=== PATIENT | female | born 1960 | race Caucasian/White ===

== ENCOUNTER → 2018-11-23 | Outpatient (CLI) | payer OTHER, SELFPAY ==
--- NOTE | 2018-11-23 09:56 | BI_ITS ---
MAMMOGRAPHY - BILATERAL SCREENING REASON FOR EXAM: Female, 58 years old. Routine annual screening examination. PERTINENT HISTORY: Non-contributory. TECHNIQUE: Digital bilateral breast radha (3D mammographic acquisition) in the CC and MLO projections. 2-D mediolateral oblique (MLO) and craniocaudad (CC) views of both breasts were obtained. CAD: Full Field Digital Mammography with Computer Added Detection was performed. COMPARISON: Comparison is made with prior study dated July 22, 2016 and April 10, 2015. FINDINGS: Breast Composition: The breasts are heterogeneously dense, which may obscure small masses. There are no dominant masses or suspicious calcifications. Stable bilateral axillary lymph nodes. No other significant abnormalities are identified. There has been no significant change since the prior study. BI/SCREENING MAMM (CAD), BILAT IMPRESSION: Stable bilateral screening mammogram. Yearly follow-up mammogram recommended. (A) ASSESSMENT CATEGORY: BIRADS Category 2: Benign. A letter regarding these results will be sent to the patient by the facility within 30 days. Approximately 10% of breast cancers are not detected by mammography. A normal mammogram should not delay biopsy of a clinically suspicious abnormality. [id number] Electronically Signed: Victorino Sullivan, at 13:50 EDT , Service support ,
== END | disposition home or self-care (01) ==
LOC: OPBI 09:53
PROVIDERS: Family Provider Family Medicine; PCP Family Medicine; Referring Provider Obstetrics & Gynecology; Visit Provider Obstetrics & Gynecology
DX: Z12.31 Encounter for screening mammogram for malignant neoplasm of breast (principal)
CPT/HCPCS: 77063; 77067

== ENCOUNTER 2021-08-27 10:29 | Outpatient (CLI) | payer OTHER, SELFPAY ==
--- NOTE | 2021-08-27 10:31 | BI_ITS ---
MAMMOGRAPHY - BILATERAL SCREENING REASON FOR EXAM: Female, 61 years old. Routine annual screening examination. PERTINENT HISTORY: Non-contributory. TECHNIQUE: Digital bilateral breast srinivasa (3D mammographic acquisition) in the CC and MLO projections. 2-D mediolateral oblique (MLO) and craniocaudad (CC) views of both breasts were obtained. CAD: Full Field Digital Mammography with Computer Added Detection was performed. COMPARISON: Comparison is made with prior study of 11/23/2018 and 07/22/2016. FINDINGS: Breast Composition: The breasts are heterogeneously dense, which may obscure small masses. There are no dominant masses or suspicious calcifications. Stable benign-appearing bilateral axillary lymph node. No other significant abnormalities are identified. There has been no significant change since the prior study. BI/SCRN MAMM (CAD)W/SRINIVASA BILAT IMPRESSION: Stable bilateral screening mammogram. Yearly follow-up mammogram recommended. (A) ASSESSMENT CATEGORY: BIRADS Category 2: Benign. A letter regarding these results will be sent to the patient by the facility within 30 days. Approximately 10% of breast cancers are not detected by mammography. A normal mammogram should not delay biopsy of a clinically suspicious abnormality. [id number] Electronically Signed: Victorino Sullivan MD at 12:08 EST , Service support ,
== END 2021-08-27 23:59 | disposition short-term general hospital (02) ==
LOC: OPBI 10:29
PROVIDERS: PCP Family Medicine
DX: Z12.31 Encounter for screening mammogram for malignant neoplasm of breast (principal)
CPT/HCPCS: 77063; 77067

== ENCOUNTER → 2022-10-28 | Outpatient (CLI) | payer OTHER, SELFPAY ==
--- NOTE | 2022-10-28 11:55 | BI_ITS ---
MAMMOGRAPHY - BILATERAL SCREENING 3-D TOMOSYNTHESIS REASON FOR EXAM: Female, 62 years old. Routine screening PERTINENT HISTORY: No significant family history. TECHNIQUE: 2-D mammograms and 3-D Tomosynthesis of the breast (s) were performed. CAD was performed. COMPARISON: 11/23/2018 FINDINGS: The breast composition is heterogeneously dense that can obscure small breast masses. Scattered benign calcifications are seen. No dense spiculated masses or suspicious microcalcifications are identified. No architectural distortion is identified. There is no skin thickening or retraction. There has been no significant change since the prior study. BI/SCRN MAMM (CAD)W/SRINIVASA BILAT IMPRESSION: No mammographic signs of malignancy. Routine yearly mammograms recommended. ASSESSMENT CATEGORY: BIRADS Category 2: Benign. A letter regarding these results will be sent to the patient by the facility within 30 days. FOLLOW UP RECOMMENDATION: Yearly follow up mammogram recommended. (A) Approximately 10% of breast cancers are not detected by mammography. A normal mammogram should not delay biopsy of a clinically suspicious abnormality. Electronically Signed: Yeison Jimenez MD at 13:01 EDT ,
== END | disposition home or self-care (01) ==
PROVIDERS: PCP Family Medicine
DX: Z12.31 Encounter for screening mammogram for malignant neoplasm of breast (principal)
CPT/HCPCS: 77063; 77067

== ENCOUNTER → 2023-09-05 | Outpatient (CLI) | payer OTHER, SELFPAY ==
--- OUTSIDE RECORDS SUMMARY | 2023-09-05 15:26 | XMS RPT_ITS | CCD ---
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 not include seasonal allergies or asthma. Note for Cold Symptoms : reviewed by [facility] 08-06-2011 Unclassified (1 source) Cold Symptoms - Symptoms include sneezing, nasal congestion, runny nose, ear pain, ear fullness, sore throat, dry cough, fever, headache and facial pain, but do not include chills. The onset was gradual 1 week(s) ago. The symptoms occur frequently. The patient describes this as moderate in severity and worsening. The patient is not currently being treated for this problem. The patient has been exposed to an individual with similar symptoms. Medical History dose not include seasonal allergies, asthma or tonsillectomy. Note for Cold Symptoms : reviewed by [facility] 05-07-2011 Unclassified (1 source) UTI - Symptoms are relieved by cranberry juice. Symptoms include dysuria, urinary frequency, urinary urgency, abdominal pain (Pressure) and back pain. Onset was 2 week(s) ago. The patient describes this as moderate in severity and unchanged. Associated symptoms include chills, nausea and urinary retention. 09-25-2010 Unclassified (1 source) Cold Symptoms - Symptoms include nasal congestion, runny nose, purulent discharge, ear fullness (bilateral), sore throat, dry cough, chills, general malaise, headache and facial pain (right greater than left), but do not include sneezing, ear pain, wheezing or fever. The onset was gradual 1 week(s) ago. The symptoms occur constantly. The patient describes this as moderate in severity and worsening. Current treatment includes NSAIDs. The patient has been exposed to an individual with an upper respiratory infection and an individual with similar symptoms. Medical History includes recurrent sinusitisPatient denies history of seasonal allergies or recurrent ear infections. 09-03-2010 Results Test Name Value Interpretation Reference Range Facil ity Vital Signs Date Time Vital Sign Value Performing Clinician Faci lity 08-28-2023 08:12-0500 Body weight 60.78 kg Ottoniel Ramesh LPN [facility] Axial Exchange [facility] 08-28-2023 08:12-0500 Diastolic blood pressure 79 mm[Hg] Ottoniel Ramesh LPN [facility] [place] [employer] [place] Encounters Encounter Date Encounter Type Care Provider Facility Start: 08-28-2023 End: 08-28-2023 Office outpatient visit 15 minutes Isrrael Noriega MD Work Phone: [facility]. Start: 08-01-2023 End: 08-01-2023 ambulatory LOPEZ KUMAR [facility] Start: 07-14-2023 End: 07-14-2023 Orders Isrrael Noriega MD Work Phone: [facility]. Start: 06-18-2023 End: 06-18-2023 Office outpatient visit 15 minutes Isrrael Noriega MD Work Phone: [facility]. Start: 05-12-2023 End: 05-12-2023 Office outpatient visit 15 minutes Isrrael Noriega MD Work Phone: [facility]. Start: 09-02-2022 End: 09-02-2022 Office outpatient visit 15 minutes Isrrael Noriega MD Work Phone: [facility]. Start: 08-23-2022 End: 08-23-2022 Patient encounter status Isrrael Noriega MD Work Phone: [facility] Start: 08-23-2022 End: 08-23-2022 Periodic preventive med est patient 40-64yrs Isrrael Noriega MD Work Phone: [facility]. Start: 08-06-2022 End: 08-06-2022 Orders Isrrael Noriega MD Work Phone: [facility]. Start: 05-31-2022 End: 06-03-2022 Orders Isrrael Noriega MD Work Phone: [facility]. Start: 10-25-2021 End: 10-25-2021 Medication Isrrael Noriega MD Work Phone: [facility]. Start: 10-19-2021 End: 10-19-2021 Office outpatient visit 15 minutes Isrrael Noriega MD Work Phone: [facility]. Start: 07-31-2021 End: 07-31-2021 Patient encounter procedure Isrrael Noriega MD Work Phone: [facility]; [facility]. Start: 07-31-2021 End: 07-31-2021 Periodic preventive med est patient 40-64yrs Isrrael Noriega MD Work Phone: [facility]. Start: 07-23-2021 End: 07-23-2021 Orders Isrrael Noriega MD Work Phone: [facility]. Start: 03-12-2021 End: 03-12-2021 Orders Isrrael Noriega MD Work Phone: [facility]. Start: 02-14-2021 End: 02-14-2021 Office outpatient visit 15 minutes Isrrael Noriega MD Work Phone: [facility]. Start: 09-12-2020 End: 09-12-2020 Orders Isrrael Noriega MD Work Phone: [facility]. Start: 09-06-2020 End: 09-06-2020 Office outpatient visit 15 minutes Isrrael Noriega MD Work Phone: [facility] Start: 07-25-2020 End: 07-25-2020 Patient encounter status Isrrael Noriega MD Work Phone: [facility]; [facility]. Start: 07-25-2020 End: 07-25-2020 Periodic preventive med est patient 40-64yrs Isrrael Noriega MD Work Phone: [facility]. Start: 07-18-2020 End: 07-24-2020 Orders Isrrael Noriega MD Work Phone: [facility] Start: 07-11-2020 End: 07-11-2020 Orders Isrrael Noriega MD Work Phone: [facility]. Start: 06-29-2020 End: 06-29-2020 Office outpatient visit 15 minutes Isrrael Noriega MD Work Phone: [facility] Start: 01-28-2020 End: 01-28-2020 Nursing evaluation of patient and report Isrrael Noriega MD Work Phone: [facility]. Start: 12-16-2019 End: 12-16-2019 Follow-up encounter Isrrael Noriega MD Work Phone: [facility]. Start: 11-16-2019 End: 11-16-2019 Office outpatient visit 15 minutes Isrrael Noriega MD Work Phone: [facility]. Start: 01-08-2019 End: 01-08-2019 Medication Isrrael Noriega MD Work Phone: [facility]. Start: 12-29-2018 End: 12-29-2018 Office outpatient visit 15 minutes Isrrael Noriega MD Work Phone: [facility]. Start: 08-14-2018 End: 08-14-2018 Orders Isrrael Noriega MD Work Phone: [facility]. Start: 08-12-2018 End: 08-12-2018 Office outpatient visit 15 minutes Isrrael Noriega MD Work Phone: [facility]. Start: 07-28-2018 End: 07-28-2018 Telephone follow-up Isrrael Noriega MD Work Phone: [facility]. Start: 07-27-2018 End: 07-27-2018 Office outpatient visit 15 minutes Isrrael Noriega MD Work Phone: [facility]. Start: 07-14-2018 End: 07-14-2018 Office outpatient visit 25 minutes Isrrael Noriega MD Work Phone: [facility]. Start: 03-26-2018 End: 03-26-2018 Historical Summary Isrrael Noriega MD Work Phone: [facility]. Start: 02-02-2018 End: 02-02-2018 Office outpatient visit 15 minutes Isrrael Noriega MD Work Phone: [facility]. Start: 08-28-2017 End: 08-28-2017 Office outpatient visit 25 minutes Isrrael Noriega MD Work Phone: [facility]. Start: 06-06-2017 End: 06-06-2017 Orders Isrrael Noriega MD Work Phone: [facility] Start: 05-16-2017 End: 05-16-2017 Office outpatient visit 15 minutes Isrrael Noriega MD Work Phone: [facility]. Start: 12-19-2016 End: 12-19-2016 Medication Isrrael Noriega MD Work Phone: [facility]. Start: 12-18-2016 End: 12-18-2016 Medication Isrrael Noriega MD Work Phone: [facility]. Start: 12-16-2016 End: 12-16-2016 Office outpatient visit 15 minutes Isrrael Noriega MD Work Phone: [facility]. Start: 09-25-2016 End: 09-25-2016 Patient encounter procedure Isrrael Noriega MD Work Phone: [facility]. Start: 02-01-2016 End: 02-01-2016 Patient encounter procedure Isrrael Noriega MD Work Phone: [facility]. Start: 07-20-2015 End: 07-20-2015 Orders Isrrael Noriega MD Work Phone: [facility]. Start: 07-12-2015 End: 07-12-2015 Office outpatient visit 15 minutes Isrrael Noriega MD Work Phone: [facility]. Start: 03-14-2015 End: 03-14-2015 Office outpatient visit 15 minutes Isrrael Noriega MD Work Phone: [facility]. Start: 01-31-2015 End: 01-31-2015 Office outpatient visit 15 minutes Isrrael Noriega MD Work Phone: [facility]. Start: 09-08-2014 End: 09-08-2014 Patient encounter procedure Isrrael Noriega MD Work Phone: [facility]. Start: 06-01-2014 End: 06-01-2014 Medication Isrrael Noriega MD Work Phone: [facility]. Start: 06-01-2014 End: 06-01-2014 Office outpatient visit 15 minutes Isrrael Noriega MD Work Phone: [facility] Start: 06-15-2013 End: 06-15-2013 Patient encounter procedure Isrrael Noriega MD Work Phone: [facility]. Start: 06-10-2012 End: 06-10-2012 Patient encounter procedure Isrrael Noriega MD Work Phone: [facility]. Start: 06-10-2012 End: 06-10-2012 Routine general medical examination at a [facility] Isrrael Noriega MD Work Phone: [facility] Start: 06-09-2012 End: 06-09-2012 Orders Isrrael Noriega MD Work Phone: [facility]. Start: 06-04-2012 End: 06-05-2012 Orders Isrrael Noriega MD Work Phone: [facility]. Start: 05-26-2012 End: 05-26-2012 Patient encounter procedure Isrrael Noriega MD Work Phone: [facility]. Start: 05-22-2012 End: 05-22-2012 Orders Isrrael Noriega MD Work Phone: [facility]. Start: 10-16-2011 End: 10-16-2011 Patient encounter procedure Isrrael Noriega MD Work Phone: [facility] Start: 08-06-2011 End: 08-06-2011 Patient encounter procedure Isrrael Noriega MD Work Phone: [facility]. Start: 05-07-2011 End: 05-07-2011 Medication Isrrael Noriega MD Work Phone: [facility]. Start: 05-07-2011 End: 05-07-2011 Patient encounter procedure Isrrael Noriega MD Work Phone: [facility]. Start: 09-25-2010 End: 09-25-2010 Patient encounter procedure Isrrael Noriega MD Work Phone: [facility] Start: 09-13-2010 End: 09-13-2010 Medication Isrrael Noriega MD Work Phone: [facility]. Start: 09-05-2010 End: 09-05-2010 Medication Isrrael Noriega MD Work Phone: [employer] Start: 09-03-2010 End: 09-03-2010 Patient encounter procedure Isrrael Noriega MD Work Phone: [employer] Follow-up encounter Ottoniel Ramesh LPN [employer]. Patient encounter procedure Huma Sykes RN [facility]. Patient encounter status Laurenleonel Lomeli [facility]. Routine general medi esvin examination at a [facility] care facility Lauren Pelletier LPN [facility]. Procedures Date Procedure Procedure Detail Performing Clinician Start: 08-23-2022 End: 08-23-2022 Depression screening Zohra Velazquez PA-C Work Phone: Start: 08-23-2022 End: 08-23-2022 Pos clin depres scrn f/u doc Zohra Velazquez PA-C Work Phone: Start: 08-23-2022 End: 10-28-2022 Screening mammography bi 2-view breast inc cad Isrrael Noriega MD Work Phone: Start: 08-06-2022 End: 08-06-2022 Lab findings surveillance Vanna Godoy long REHABILITATION TECHNICIAN Plan of Treatment Date Care Activity Detail Author Start: 08-20-2023 Comprehensive metabo lic panel CMP w/ GFR* ([id number]) Start: 20-Aug-2023 Request [facility]. Start: 08-20-2023 Lipid panel LIPID PANEL ([id number]) Start: 20-Aug-2023 Request [facility] [employer] Start: 03-12-2021 Mammogram, screening Mammogram , Bilateral Screening Start: 12-Mar-2021 Intent [facility]. dexAMETHasone so d phos (bulk) 100 % powder Ordered: 12-Aug-2018 MD Isrrael Noriega [facility]. Immunizations Immunization Date Immunization Notes Care Provider Fa susan 07-22-2022 influenza, injectabl e, quadrivalent, contains preservative Isrrael Noriega MD Work Phone: [facility]. 07-31-2021 influenza, injectabl e, quadrivalent, contains preservative Isrrael Noriega MD Work Phone: [facility]. Payers Date Payer Category Payer Unknown [id number] Unknown [id number] Unknown [employer] Social History Date Type Detail Facility Alcohol Use: Alcohol Use: ; M ore than 7 drinks per week. [facility] Caffeine Use Caffeine Use [facility]. Tobacco Use: Tobacco Use: ; Former smoker . [facility]. Female [facility]. Work Phone: Ex-smoker [facility]. Work Phone: Summary Purpose Family History Coronary Artery Disease Status:Active Comments :Maternal Grandfather. Hypertension Status:Active Comments:Mother. Father. siblings Lung Cancer Status:Active Comments:Father. small cell Osteoarthritis Status:Active Comments:Mother. Aunts Rheumatoid Arthritis Status:Active Comments:Ma tertheresa Aunt. Skin Cancer Status:Active Comments:grandfa ther Advance Directives No Advanced Directives Records FoundNo Advanced Directives Records FoundNo Advanced Directives Records Found Additional Source Comments INFORMATION SOURCE (unrecogn ized section and content) DATE CREATED AUTHOR AUTHOR'S ORGANIZ ATION 08/10/2022 [facility] DATE CREATED AUTHOR AUTHOR'S ORGANIZ ATION 08/03/2023 [facility] FOR RECORDS PERTAINING TO PATIENTS WHO ARE OR HAVE BEEN ENROLLED IN A CHEMICAL DEPENDENCY/SUBSTANCEABUSE PROGRAM, SOME INFORMATION MAY BE OMITTED. This clinical summary was aggregated from multiple sources. Caution should be exercised in using it in the provision of clinical care. This summary normalizes information from multiple sources, and as a consequence, information in this document may materially change the coding, format and clinical context of patient data. In addition, data may be omitted in some cases. CLINICAL DECISIONS SHOULD BE BASED ON THE PRIMARY CLINICAL RECORDS. [facility] [employer] [facility] provides no warranty or guarantee of the accuracy or completeness of information in this document.
[2023-09-05 18:00] LABS: CRP < 2.90 mg/L (0.0-3.0)
[2023-09-08 15:07] LABS: Endomysial Antibody IgA Negative (Negative); Immunoglobulin A 229 mg/dL (87-352); t-Transglutaminase IgA <2 U/mL (0-3)
== END | disposition home or self-care (01) ==
LOC: MTLAB 15:10
PROVIDERS: PCP Family Medicine; Referring Provider Internal Medicine Gastroenterology; Visit Provider Internal Medicine Gastroenterology
DX: R19.7 Diarrhea, unspecified (principal)
CPT/HCPCS: 36415; 82784; 83516; 86140; 86255